=== PATIENT | female | born 1945 | race Caucasian/White ===

== ENCOUNTER 2016-10-31 16:51 | Emergency (ER) | payer MEDICARE, OTHER ==
--- NOTE | 2016-10-31 16:57 | EDM.PDOC ---
ED HPI GENERAL MEDICAL PROBLEM - General Chief Complaint: Respiratory Problem Stated Complaint: Shortness of Breath Time Seen by Provider: 10/31/16 16:54 Source of Information: Reports: Patient, Family, RN, RN Notes Reviewed History Limitations: Reports: No Limitations - History of Present Illness INITIAL COMMENTS - FREE TEXT/NARRATIVE: Patient presents to the emergency room at [facility] complaining of upper airway tightness, shortness of breath, wheezing. The patient states that she had a cortisone injection 3 days ago for back pain. The patient states that her breathing since the cortisone injection has progressively gotten worse. The patient states today has been the worst, when the airway tightness started. According to the , he states the patient seems to gasp for air. The patient has had a cortisone injection last May for her low back pain. The patient states she has had an on/off cough that just started with the shortness of breath. Onset: Today Duration: Constant - Related Data Allergies Allergy/AdvReac Type Severity Reaction Status Date / Time aspirin [From Aggrenox] Allergy Nausea Verified 10/27/16 12:43 dipyridamole [From Aggrenox] Allergy Nausea Verified 10/27/16 12:43 Home Meds: Home Meds Albuterol [Proventil HFA] 2 puff PO Q4H PRN 06/08/16 [History] Aspirin 1 tab PO DAILY 06/08/16 [History] Budesonide/Formoterol Fumarate [Symbicort 160-4.5 Mcg Inhaler] 2 puff PO DAILY 06/08/16 [History] Ibuprofen [Advil] 200 - 600 mg PO QID PRN 06/08/16 [History] Lactose-Reduced Food [Ensure] 1 dose PO DAILY 06/08/16 [History] Metoprolol Succinate [Toprol XL] 50 mg PO DAILY 06/08/16 [History] Pregabalin [Lyrica] 25 mg PO BID 06/08/16 [History] Propylene Glycol/Peg 400 [Systane 0.3-0.4% Eye Drops] 1 drop EYEBOTH ASDIRECTED 06/08/16 [History] atorvaSTATin [Lipitor] 20 mg PO DAILY 06/08/16 [History] traMADol [Ultram] 25 mg PO Q4H PRN 06/08/16 [History] ED ROS GENERAL - Review of Systems Review Of Systems: See Below Constitutional: Denies: Fever, Chills, Weakness HEENT: Reports: No Symptoms Respiratory: Reports: Shortness of Breath, Cough Cardiovascular: Reports: Dyspnea on Exertion. Denies: Chest Pain, Palpitations Skin: Reports: No Symptoms Neurological: Reports: No Symptoms. Denies: Headache, Numbness, Paresthesia, Tingling ED EXAM, GENERAL - Physical Exam Exam: See Below Exam Limited By: No Limitations General Appearance: Alert, No Apparent Distress, Thin, Cachetic Throat/Mouth: Normal Inspection, Normal Oropharynx, No Airway Compromise Respiratory/Chest: Decreased Breath Sounds, Stridor, Retractions Cardiovascular: Regular Rate, Rhythm Neurological: Alert, Oriented Skin Exam: Warm, Dry, Intact, Normal Color, No Rash Course - Orders/Labs/Meds Orders: Active Orders 24 hr Category Date Time Status RT Aerosol Therapy [RC] ASDIRECTED Care 10/31/16 17:01 Active Chest 2V [CR] Stat Exams 10/31/16 17:10 Ordered Sodium Chloride 0.9% [Saline Flush] Med 10/31/16 16:58 Active 10 ml FLUSH ASDIRECTED PRN Peripheral IV Insertion Adult [OM.PC] Routine Oth 10/31/16 16:58 Ordered Medication Orders Sodium Chloride (Saline Flush) 10 ml FLUSH ASDIRECTED PRN PRN Reason: Keep Vein Open Meds: Medications Generic Name Dose Route Start Last Admin Trade Name Freq PRN Reason Stop Dose Admin Sodium Chloride 10 ml 10/31/16 16:58 Saline Flush FLUSH ASDIRECTED PRN Keep Vein Open Discontinued Medications Generic Name Dose Route Start Last Admin Trade Name Freq PRN Reason Stop Dose Admin Albuterol/Ipratropium 3 ml 10/31/16 17:01 10/31/16 17:10 Duoneb 3.0-0.5 Mg/3 Ml NEB 10/31/16 17:02 3 ml ONETIME ONE Administration Famotidine 20 mg 10/31/16 16:58 10/31/16 17:07 Pepcid IVPUSH 10/31/16 16:59 20 mg ONETIME ONE Administration Methylprednisolone Sodium Succinate 125 mg 10/31/16 16:58 10/31/16 17:09 Solu-Medrol IVPUSH 10/31/16 16:59 125 mg ONETIME ONE Administration - Re-Assessments/Exams Free Text/Narrative Re-Assessment/Exam: 10/31/16 18:05 Discussed breathing with patient. She states it feels back to her normal pattern. She no longer feels SOB. Discussed xray findings. All questions answered. Departure - Departure Time of Disposition: 18:06 Disposition: Home, Self-Care 01 Condition: good Clinical Impression: Chronic stridor - Discharge Information Instructions: Shortness of Breath, [id number] Referrals: Vikki Cornejo, [Primary Care Provider] - Forms: ED Department Discharge Additional Instructions: 1. Stay well hydrated and rest 2. Use inhalers at home if your feels your shortness of breath getting worse 3. Continue all other medications the same 4. Eat some food, this will help 5. See your Primary as symptoms warrant - Problem List Review Problem List Initiated/Reviewed/Updated: Yes - My Orders Last 24 Hours: My Active Orders 10/31/16 16:58 Sodium Chloride 0.9% [Saline Flush] 10 ml FLUSH ASDIRECTED PRN Peripheral IV Insertion Adult [OM.PC] Routine 10/31/16 17:01 RT Aerosol Therapy [RC] ASDIRECTED 10/31/16 17:10 Chest 2V [CR] Stat - Assessment/Plan Last 24 Hours: My Active Orders 10/31/16 16:58 Sodium Chloride 0.9% [Saline Flush] 10 ml FLUSH ASDIRECTED PRN Peripheral IV Insertion Adult [OM.PC] Routine 10/31/16 17:01 RT Aerosol Therapy [RC] ASDIRECTED 10/31/16 17:10 Chest 2V [CR] Stat
[2016-10-31] MEDS ORDERED: Famotidine 20 MG/2 ML SDV IVPUSH ONE (16:58)
[2016-10-31] MEDS ORDERED: Sodium Chloride 0.9% 10 ML Syringe FLUSH PRN (16:58)
[2016-10-31] MEDS ORDERED: methylPREDNISolone Sodium Succinate 125 MG/2 ML SDV IVPUSH ONE (16:58)
[2016-10-31] MEDS ORDERED: Albuterol/Ipratropium 3.0-0.5 MG/3 ML Neb Soln NEB ONE (17:01)
[2016-10-31 19:41] VITALS: BP 136/78
== END 2016-10-31 18:15 | disposition home or self-care (01) ==
LOC: VM.ED 16:51
DX: R06.1 Stridor (principal); M54.9 Dorsalgia, unspecified; Z79.82 Long term (current) use of aspirin; Z79.899 Other long term (current) drug therapy; Z88.8 Allergy status to other drugs, medicaments and biological substances
CPT/HCPCS: 71020; 94640; 96374; 96375; 99284; 99285; J2930; S0028

== ENCOUNTER 2017-06-25 09:02 | Inpatient (IN) | payer MEDICARE, OTHER ==
[2017-06-25] MEDS ORDERED: Dextran 70/Hypromellose/PF Ophth Soln 0.9 ML UD EYEBOTH PRN (13:45)
[2017-06-25] MEDS ORDERED: Take Home: Albuterol 6.7 GM Inhaler, 1 Inhaler Pack INH PRN (13:45)
[2017-06-25] MEDS ORDERED: Albuterol 0.083% 2.5 MG/3 ML Neb Soln NEB PRN (14:06)
[2017-06-25] MEDS ORDERED: Sodium Chloride 0.9% 10 ML Syringe FLUSH PRN (16:57)
[2017-06-25] MEDS ORDERED: Furosemide 20 MG Tab GTUBE PRN (16:59)
[2017-06-25] MEDS ORDERED: Acetaminophen 325 MG Tab PO PRN (17:25)
[2017-06-25] MEDS ORDERED: Atropine 1% Ophth Soln 5 ML BOTTLE SL PRN (17:31)
[2017-06-25] MEDS ORDERED: Lactated Ringers 1,000 ML IV SCH ×2 (18:30→23:45)
--- NOTE | 2017-06-25 19:30 | PCM.SN ---
- Free Text/Narrative Note: Called by nursing staff when patient BP 60/30's. She had gotten a bolus through her G-tube and they were working on getting the IV placed. I came in to assess the patient who was awake and answering questions appropriately. While the IV was being placed, another 100 cc bolus given through her g-tube. ER nurse able to get IV in the foot. LR then started at 100 cc/hr in order not to cause issues with the IV. Instructed nursing staff to call with BP in 30 minutes. On recheck, BP much better at 87/40's. Will complete bolus of 100 cc only and recheck BP 30 minutes after this is stopped.
--- NOTE | 2017-06-25 20:09 | PCM.SN ---
- Free Text/Narrative Note: Called by nursing that patient's BP is back down to 60s/30s; she remains alert and answering questions appropriately. Will give another 100 cc bolus over an hour. Low blood pressures presumed to be secondary to less intake today with the transition to [place]. Will hold off on further evaluation as long as she continues to respond to these gentle boluses. If she does not, then will do CBC, troponin, BMP, lactate, and CRP for further evaluation.
[2017-06-25] MEDS: Metoprolol Tartrate 50 MG Tab GTUBE SCH (20:59)
[2017-06-25] MEDS: Pregabalin 50 MG Cap GTUBE SCH (20:59)
--- NOTE | 2017-06-25 22:26 | HP ---
CHIEF COMPLAINT/HISTORY OF PRESENT ILLNESS: Weakness and deconditioning following a prolonged acute stay at [facility] from 06/17 through 06/25 for aspiration pneumonia, treated with antibiotics, completed her course. Atrial flutter. Asymmetric septal hypertrophy with a dynamic left ventricular outflow obstruction. EF 80%. Chronic bilateral vocal cord paralysis and weight loss really gradually over the past 2 years, but her weight was only 2 pounds greater 6 months ago when she declined PEG tube placements. [id number] CT due to demand ischemia. No significant coronary artery workup took place. The patient had previous chronic pain, had multiple vertebral compression fractures. She was taking tramadol 1 to 2 times a day for pain. She was found to be unresponsive or less responsive. She did respond to Narcan, therefore, was taken off her tramadol in [place]. She had also been on Lyrica. She had received a benzodiazepine in the emergency room in [place]. She had also received some Lovenox due to concern for CT. She was found to be in SVT and did receive Cardizem and Lasix. She did receive some Lasix last night. She states she went to the bathroom quite a bit. She states her breathing is the same. She is not having trouble with cough. She denies any pain currently. She was switched to oral metoprolol. She did have some rapid heart rates during her stay, but they have been more controlled recently. Otherwise, she did have some GI bleeding after her PEG tube placement on 06/19, which the melena was on 06/20. GI was consulted, but did not do any scopes. Due to her condition, they felt it might be high risk and the bleeding eventually stopped. She was then placed on a PPI and interestingly was given NSAIDs for pain. She had an MRI of the brain, which was negative. The cause of her vocal cord paralysis is unknown and really she has had this since the . Last year, she was seen by ENT who recommended tracheostomy, but the patient declined. She also declined tracheostomy at this time as her father had one for cancer, but she did express interest along with her family of having it if she gains more strength back. She even had a palliative care consult during her admission, but she felt with her family that she was not ready for palliative care and wanted to continue with aggressive treatments. Otherwise, when she came to swing bed, she was a little bit tired, but she was alert. She was able to answer questions appropriately. Her breathing and wheezing with throat noise were similar to what I have experienced when I have been around her in the past. She was on 2 L of oxygen and has been on this amount down in [place]. Her weight was 36.2 kg when she arrived. She had no leg swelling. PAST MEDICAL HISTORY: Includes previous hysterectomy for pelvic prolapse with bilateral salpingo-oophorectomy and anterior colporrhaphy in September 2012. Chronic dysphonia, probably due to the vocal cord paralysis, and really she actually worked with speech therapy back in the . Diastolic dysfunction on echo in 2012. Hyperlipidemia, mild pulmonary hypertension, peripheral vascular disease with a right CEA, but never smoked, but did have a previous TIA. Glaucoma. Reactive airway disease that is not asthma, worse in the humidity in [place]. Osteoporosis with previous fracture and chronic thoracic back pain. Essential hypertension, stopped Toprol in May of 2017. PAST SURGICAL HISTORY: Surgically as listed above. Otherwise, the patient has had tubal ligation, cataract surgery, breast biopsies. SOCIAL HISTORY: Socially, the patient is . 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 She lives at home with her . They have 2 children. She is nonsmoker, nondrinker. FAMILY HISTORY: Her mother is , had a heart attack, had osteoporosis and kyphosis later in life. Father had alcohol abuse and laryngeal cancer. Sister is alive and healthy. REVIEW OF SYSTEMS: General: She has had some weight loss up and down, it has been a chronic thing. I do not think it is fair to say there has been an excessive weight loss, but she is down 8 pounds since March. HEENT: No sore throat, but she has had some secretions. She has had no fever or chills. Cardiac: No chest pain. No palpitations. Respiratory: She has had a little bit of a cough, no worse. states she was always coughing in the mornings at home. Her breathing is the same. There has been some wheezing, but no changes. Abdomen: No nausea, vomiting, or abdominal pain but did have some loose stools presumably due to the tube feeds. She was reported to have some C. diff testing in [place] that has been negative, although I did not find that done since 06/20 at which point it was negative. Neurologic: She has had no new weakness. No focal weakness. No numbness. Musculoskeletal: Back pain has not been any worse. She, otherwise, has no new aches or pains. Otherwise, all systems reviewed and found to be negative unless, otherwise, stated. PHYSICAL EXAMINATION: Vital Signs: Include weight 36.2 kg, temp 97, pulse 93, blood pressure 100/70, respiratory rate 30, O2 95% on 2 L. General: She is in no acute distress. She appears quite tired. She is resting comfortably in bed. Heart: Regular rate and rhythm with murmur noted. Lungs: Lung sounds are slightly decreased over the right base, but clear without crackles. There is no peripheral wheezing. Her wheezing appears more central or in the trachea area. Mental Status: She is alert and orientated x3. She answers questions, but her voice is soft. It does take considerable effort for her to talk. Abdomen: Has a G-tube in place. Positive bowel sounds. Soft and nontender. Extremities: Warm and dry. No edema. Overall, she is mildly pale. Mental Status: She is alert. She is orientated x3. She recognizes me. LABORATORY DATA: Laboratory work from yesterday did show a troponin still at 0.069, was trending down. Her glucoses have been quite high up to 232 and 208 today. Otherwise, her kidney function yesterday, creatinine was 0.6, BUN 25. Potassium 4.1, sodium 146, phosphorus 1.7, albumin 2.6, calcium 8. Last blood count was white count 11.6 on 06/21, hemoglobin 12.5, platelets 275. ASSESSMENT: 1. Recent aspiration pneumonia, completed antibiotics. This is due to vocal cord paralysis. The patient is at significant risk for this to reoccur. This was discussed extensively with her and her family. She would like to get stronger and consider tracheostomy placement. 2. Bilateral vocal cord paralysis. The patient has had for over 25 years. She has seen specialists for this in the past. Brain MRI was okay. 3. Atrial flutter with previous rapid ventricular response. This is new onset. She is now having a more controlled response. We will continue metoprolol but hold for low blood pressures. 4. Dynamic left ventricular outflow obstruction. The patient at this point actually appears slightly dry. I am going to change her Lasix to p.r.n. and give it to her if needed for fluid retention. We will get support stockings in place. 5. Bbq-CD-plnfblghf myocardial infarction in the setting of demand ischemia. She is on aspirin. No signs of gastrointestinal bleeding. 6. Chronic pain related to compression fractures in the back. She will be on Tylenol. I am going to hold NSAIDs. We will also continue her Lyrica. 7. Chronic hypoxic respiratory failure since her admission for pneumonia. We will continue oxygen and wean off as able. 8. Previous peripheral vascular disease. 9. Severe malnutrition. She is on tube feeds. She is currently at 50 mL/h with q.i.d. 100 mL of fluid. We will follow up with a sodium on Wednesday. 10.Deep vein thrombosis prophylaxis. I will put her on support stockings. She can be up and working with PT. PLAN: PT, OT, and Speech consults. Labs on Wednesday. Close monitoring of blood pressure. Atropine ordered for secretions. Lasix to p.r.n. Discussed plans of care is to try to get stronger. I instructed that overall prognosis is very guarded. Family would like to try everything, so if her condition worsens, recommend labs, x-rays, acute treatments, and transfer back to [place] as indicated. I updated Dr. Alex who will be covering for the weekend. MKA: 06/25/2017 17:36:49 MODL: 06/25/2017 22:20:40 /[id number]
--- NOTE | 2017-06-25 22:38 | PCM.SN ---
- Free Text/Narrative Note: Although patient's blood pressure continues to respond nicely to fluid boluses, it also continues to drop again once boluses are stopped. She remains alert and answering questions appropriately per nursing report. Will increase fluid rate to 100 cc/hr again. Will also check stat labs. Check BP again in 30 minutes.
--- NOTE | 2017-06-26 00:36 | PCM.SN ---
- Free Text/Narrative Note: Had restarted fluids at 50 cc/hr. Despite this, patient's BP dropped again to the 60's/30's. I came in to reassess the patient. She is lightheaded but otherwise answering questions appropriately. She denies any fever, chills, cough , abdominal pain, vomiting, or diarrhea. No UTI symptoms. Fluids increased back to 100 cc/hr. Stat labs also obtained. BP did improve with higher fluid rates. WBC quite high; CRP up slightly; lactic acid is normal. CXR obtained and shows evidence of bibasilar pneumonia vs. atelectasis. Based on her WBC, favor pneumonia. Family came in to see the patient. Held a discussion about transfer to [place] in light of limited options for fluid resuscitation if we lose current IV access or BP does not continue to respond to slow fluid infusion rates. Patient does not want to transfer to [place]. Then held a conversation about doing antibiotics and continuing IV fluids and she desires to do so. Last, again reviewed code status and she would like to remain full code. Family present and in agreement with this plan. Will start ceftriaxone and metronidazole as she responded well to this in [place]. Will have to give ceftriaxone IM due to interaction with LR in same line. Patient aware and accepting of this. Flagyl will be given PO. Hopefully tomorrow she can transition to orals. BP has come up nicely with the fluids. Will decrease fluid rate to 50 cc/hr and continue that overnight. Routine vital signs. Apparently there was some mix-up and she was placed on acute inpatient status earlier today. This is appropriate given her current status and we will leave her as inpatient for now. Patient and family aware that her condition could change and that we will have ongoing discussions on level of intervention desired as the days go on.
[2017-06-26] MEDS ORDERED: cefTRIAXone 1 GM Vial IM ONE (01:16)
[2017-06-26] MEDS ORDERED: metroNIDAZOLE 500 MG Tab GTUBE SCH (01:30)
[2017-06-26] MEDS: Metoprolol Tartrate 50 MG Tab GTUBE SCH ×4 (06:35→21:07)
[2017-06-26] MEDS ORDERED: BUDESONIDE PO SCH (08:00)
[2017-06-26] MEDS ORDERED: FORMOTEROL PO SCH (08:00)
[2017-06-26] MEDS ORDERED: Aspirin 81 MG Tab.Chew GTUBE SCH (08:00)
[2017-06-26] MEDS ORDERED: Calcium Carbonate 1,250 MG/5 ML Susp 5 ML UD Cup GTUBE SCH (08:00)
[2017-06-26] MEDS ORDERED: Calcitonin (Salmon) Nasal Spray 3.7 ML Bottle NAS SCH (08:00)
[2017-06-26] MEDS ORDERED: Furosemide 20 MG Tab GTUBE SCH (08:00)
[2017-06-26] MEDS ORDERED: atorvaSTATin 10 MG Tab GTUBE SCH (08:00)
[2017-06-26] MEDS ORDERED: Furosemide 20 MG/2 ML VIAL IV ONE (09:08)
--- NOTE | 2017-06-26 09:35 | PCM.PN ---
- General Info Date of Service: 06/26/17 Subjective Update: Patient seen this morning. Does not answer questions this morning. Family present at bedside. Patient has had some difficulty with shortness of breath this am. See summary of this morning's events below under a/p. - Patient Data Vitals - Most Recent: Last Vital Signs Temp 37.2 C 06/26/17 07:49 Pulse 95 06/26/17 07:49 Resp 34 H 06/26/17 07:49 BP 120/52 L 06/26/17 07:49 Pulse Ox 96 06/26/17 07:49 Weight - Most Recent: 36.287 kg I&O - Last 24 Hours: Intake & Output 06/25/17 06/26/17 06/26/17 22:59 06:59 14:59 Intake Total 200 100 Output Total 120 Balance 80 100 Lab Results Last 24 Hours: Laboratory Results - last 24 hr 06/25/17 06/25/17 06/25/17 Range/Units 23:20 23:20 23:20 WBC 18.3 H (4.0-10.0) x10^3/uL RBC 3.65 L (4.00-5.50) x10^6/uL Hgb 11.7 L D (12.0-16.0) g/dL Hct 36.9 (33.0-47.0) % MCV 101.1 H D (78.0-93.0) fL MCH 32.1 H (26.0-32.0) pg MCHC 31.7 L (32.0-36.0) g/dL RDW Coeff of Yony 13.3 (10.0-15.0) % Plt Count 287 (130-400) x10^3/uL Add Manual Diff Yes Neutrophils % (Manual) 85 H (50-80) % Band Neutrophils % 7 H (0-6) % Lymphocytes % (Manual) 2 L (25-50) % Atypical Lymphs % 5 H (0) % Monocytes % (Manual) 1 L (2-11) % Platelet Estimate Adequate Polychromasia 1+ slight H Poikilocytosis 1+ slight H Anisocytosis 1+ slight H Sodium 143 (136-145) mmol/L Potassium 3.4 L (3.5-5.1) mmol/L Chloride 99 (98-107) mmol/L Carbon Dioxide 40 H D (21-32) mmol/L BUN 39 H (7-18) mg/dL Creatinine 0.9 (0.55-1.02) mg/dL Est Cr Clr Drug Dosing 31.89 mL/min Estimated GFR (MDRD) > 60 Glucose 198 H (74-106) mg/dL POC Glucose (74-106) mg/dL Lactic Acid 1.8 (0.4-2.0) mmol/L Calcium 7.9 L (8.5-10.1) mg/dL Troponin I 0.087 H* (<=0.056) ng/mL C-Reactive Protein 3.4 H (<=0.9) mg/dL 06/26/17 Range/Units 06:19 WBC (4.0-10.0) x10^3/uL RBC (4.00-5.50) x10^6/uL Hgb (12.0-16.0) g/dL Hct (33.0-47.0) % MCV (78.0-93.0) fL MCH (26.0-32.0) pg MCHC (32.0-36.0) g/dL RDW Coeff of Yony (10.0-15.0) % Plt Count (130-400) x10^3/uL Add Manual Diff Neutrophils % (Manual) (50-80) % Band Neutrophils % (0-6) % Lymphocytes % (Manual) (25-50) % Atypical Lymphs % (0) % Monocytes % (Manual) (2-11) % Platelet Estimate Polychromasia Poikilocytosis Anisocytosis Sodium (136-145) mmol/L Potassium (3.5-5.1) mmol/L Chloride (98-107) mmol/L Carbon Dioxide (21-32) mmol/L BUN (7-18) mg/dL Creatinine (0.55-1.02) mg/dL Est Cr Clr Drug Dosing mL/min Estimated GFR (MDRD) Glucose (74-106) mg/dL POC Glucose 205 H (74-106) mg/dL Lactic Acid (0.4-2.0) mmol/L Calcium (8.5-10.1) mg/dL Troponin I (<=0.056) ng/mL C-Reactive Protein (<=0.9) mg/dL [place] Results Last 24 Hours: Microbiology 06/25/17 13:05 MRSA Surveillance Culture - Final Nares, Left NO MRSA ISOLATED Med Orders - Current: Current Medications Acetaminophen (Tylenol) 650 mg PO Q6H PRN PRN Reason: Pain Last Admin: 06/26/17 06:35 Dose: 650 mg Albuterol (Proventil Neb Soln) 2.5 mg NEB Q4HRRT PRN PRN Reason: Wheezing Artificial Tears (Tears Naturale Free) 1 each EYEBOTH ASDIRECTED PRN PRN Reason: DRY EYES Atropine Sulfate (Atropine 1% Ophth Soln) 0 ml SL Q2H PRN PRN Reason: Other Calcitonin [place] (Miacalcin Nasal [place]) 0 ml JUAN DAILY [facility] Metoprolol Tartrate (Lopressor) 50 mg GTUBE TID [facility] Last Admin: 06/26/17 07:52 Dose: Not Given Morphine Sulfate (Morphine 20 Mg/Ml Soln) 5 mg GTUBE Q30M PRN PRN Reason: Shortness of breath/dyspnea Budesonide/Formoterol (Own Supply) 0 puff PO DAILY [facility] Pregabalin (Lyrica) 50 mg GTUBE BID [facility] Last Admin: 06/25/17 20:59 Dose: 50 mg Senna/Docusate Sodium (Senna Plus) 1 tab GTUBE DAILY PRN PRN Reason: Constipation Sodium Chloride (Saline Flush) 10 ml FLUSH ASDIRECTED PRN PRN Reason: Keep Vein Open Discontinued Medications Aspirin (Aspirin) 81 mg GTUBE DAILY [facility] Atorvastatin Calcium (Lipitor) 20 mg GTUBE DAILY [facility] Calcium Carbonate/Glycine (Calcium Carbonate 250 Mg/Ml Susp) 1,250 mg GTUBE DAILY [facility] Ceftriaxone Sodium (Rocephin) 1 gm IM ONETIME ONE Stop: 06/26/17 01:17 Last Admin: 06/26/17 02:21 Dose: 1 gm Furosemide (Lasix) 20 mg GTUBE DAILY [facility] Furosemide (Lasix) 20 mg GTUBE DAILY PRN PRN Reason: Edema Furosemide (Lasix) 5 mg IV ONETIME ONE Stop: 06/26/17 09:09 Lactated Ringer's (Ringers, Lactated) 1,000 mls @ 100 mls/hr IV ASDIRECTED BOWEN Stop: 06/25/17 19:30 Lactated Ringer's (Ringers, Lactated) 1,000 mls @ 100 mls/hr IV ASDIRECTED [facility] Last Infusion: 06/26/17 01:23 Dose: 50 mls/hr Metronidazole (Flagyl) 500 mg GTUBE Q8H [facility] Last Admin: 06/26/17 02:22 Dose: 500 mg - Exam General: Moderate Distress, Lethargic Lungs: Crackles Cardiovascular: Regular Rate, Regular Rhythm, No Murmurs GI/Abdominal Exam: Normal Bowel Sounds, Soft, Non-Tender, No Distention Extremities: Normal Inspection, No Pedal Edema Skin: Warm, Dry, Intact - Problem List & Annotations (1) Palliative care patient SNOMED Code(s): 316808591 Code(s): Z51.5 - ENCOUNTER FOR PALLIATIVE CARE Status: Acute Current Visit: Yes Annotation/Comment:: Patient seen many times last night for hypotension. BP's have improved with IV fluids. However, this am, she is now having more difficulty breathing. Unclear whether this is fluid overload or presumed aspiration pneumonia given patient inability to participate with lung exam. She is much more sleepy this am and unable to answer questions appropriately. Her , son, daughter, and sister are present at the bedside. Again reviewed her declining condition. She is in respiratory distress. Her saturations are staying up with nasal cannula but he respiratory status otherwise is distressed. Reviewed that if we do not intervene for this, she will continue to decline and likely pass away in the next few hours. Discussed that possible interventions would include IV diuretics and antibiotics , non-invasive positive pressure ventilation, and intubation. Discussed also that we could again consider transition to a more comfort care approach and change her management to that regard. After this discussion, her and family have opted to transition to comfort cares. They are ok with her getting IV lasix to see if this helps at all with her respiratory status. Other than that, no further interventions. Her medications will be simplified. Morphine will be added PRN pain or shortness of breath. Will stop vital sign checks and allow her family to spend time with her. All questions answered. My condolences were offered. - Problem List Review Problem List Initiated/Reviewed/Updated: Yes - My Orders Last 24 Hours: My Active Orders 06/25/17 18:25 Communication Order [RC] STAT 06/25/17 18:48 Communication Order [RC] PER UNIT ROUTINE 06/26/17 00:06 Chest 1V Frontal [CR] Stat 06/26/17 01:07 Admission Status [Patient Status] [ADT] Routine 06/26/17 09:22 Resuscitation Status Routine 06/26/17 09:25 Morphine [Morphine 20 MG/ML Soln] 5 mg GTUBE Q30M PRN 06/26/17 09:26 Oxygen Therapy [RC] PRN - Assessment Assessment:: See above. - Plan Plan:: See above.
[2017-06-26] MEDS: Pregabalin 50 MG Cap GTUBE SCH ×2 (10:03→21:07)
--- NOTE | 2017-06-26 16:23 | PCM.SN ---
- Free Text/Narrative Note: Tube feed bottle ended. Nursing wondering if they should continue. Spoke with family and recommend at least a temporary hold on the tube feeds given concern for aspiration at this time. No other changes. Patient is comfortable.
[2017-06-26] MEDS: Morphine Oral Concentrate 20 MG/ML 30 ML Bottle GTUBE PRN ×4 (18:00→22:37)
[2017-06-26] MEDS: LORazepam 0.5 MG Tab GTUBE PRN ×2 (21:06→22:36)
[2017-06-26 21:10] VITALS: BP 130/68
[2017-06-27] MEDS: Morphine Oral Concentrate 20 MG/ML 30 ML Bottle GTUBE PRN (03:14)
--- NOTE | 2017-07-07 08:27 | PCM.DCSUM1 ---
Discharge Summary - Hospital Course Brief History: Patient transitioned to acute cares due to need for increased evaluation and management of shortness of breath. - Discharge Data Discharge Date: 06/27/17 Discharge Disposition: 20 Condition: - Discharge Diagnosis/Problem(s) (1) Palliative care patient SNOMED Code(s): 862494482 ICD Code: Z51.5 - ENCOUNTER FOR PALLIATIVE CARE Status: Acute Problem Details: Patient seen many times last night for hypotension. BP's have improved with IV fluids. However, this am, she is now having more difficulty breathing. Unclear whether this is fluid overload or presumed aspiration pneumonia given patient inability to participate with lung exam. She is much more sleepy this am and unable to answer questions appropriately. Her , son, daughter, and sister are present at the bedside. Again reviewed her declining condition. She is in respiratory distress. Her saturations are staying up with nasal cannula but he respiratory status otherwise is distressed. Reviewed that if we do not intervene for this, she will continue to decline and likely pass away in the next few hours. Discussed that possible interventions would include IV diuretics and antibiotics, non-invasive positive pressure ventilation, and intubation. Discussed also that we could again consider transition to a more comfort care approach and change her management to that regard. After this discussion, her and family have opted to transition to comfort cares. They are ok with her getting IV lasix to see if this helps at all with her respiratory status. Other than that, no further interventions. Her medications will be simplified. Morphine will be added PRN pain or shortness of breath. Will stop vital sign checks and allow her family to spend time with her. All questions answered. My condolences were offered. - Patient Summary/Data Consults: Consultations 06/25/17 11:33 PT Evaluation and Treatment [CONS] Routine 06/25/17 11:34 OT Evaluation and Treatment [CONS] Routine 06/25/17 11:37 Consult to Speech Language Pathology [HOSPITAL EDUCATION COORDINATOR Evaluation and Treatment] [CONS] Routine Hospital Course: Patient's clinical status progressively worsened and she was transitioned to comfort cares. Her symptoms were controlled and she passed comfortably in the presence of her family. - Discharge Plan Home Medications: Home Meds Albuterol [Proventil HFA] 2 puff PO Q4H PRN 06/08/16 [History] Aspirin 81 mg GTUBE DAILY 06/08/16 [History] Budesonide/Formoterol Fumarate [Symbicort 160-4.5 Mcg Inhaler] 2 puff PO DAILY 06/08/16 [History] Ibuprofen [Advil] 200 - 600 mg GTUBE QID PRN 06/08/16 [History] Propylene Glycol/Peg 400 [Systane 0.3-0.4% Eye Drops] 1 drop EYEBOTH ASDIRECTED 06/08/16 [History] atorvaSTATin [Lipitor] 20 mg GTUBE DAILY 06/08/16 [History] Calcitonin ([place]) [Miacalcin Nasal [place]] 1 spray JUAN DAILY [facility] alternate nostril 06/16/17 [History] Calcium Carb & Citrate/Vit D3 [Calcium + D3 ER Tablet] 500 mg GTUBE DAILY [History] Sennosides/Docusate Sodium [Senokot-S Tablet] 1 tab GTUBE DAILY PRN 06/16/17 [ History] Furosemide 20 mg GTUBE DAILY 06/25/17 [History] Metoprolol Tartrate 50 mg GTUBE TID 06/25/17 [History] Pregabalin [Lyrica] 50 mg GTUBE BID 06/25/17 [History] - Patient Data Vitals - Most Recent: Last Vital Signs Temp 36.7 C 06/26/17 10:00 Pulse 105 H 06/26/17 21:07 Resp 24 H 06/26/17 10:00 BP 130/68 06/26/17 21:07 Pulse Ox 95 06/26/17 20:00 Weight - Most Recent: 36.287 kg Med Orders - Current: Current Medications Discontinued Medications Acetaminophen (Tylenol) 650 mg PO Q6H PRN PRN Reason: Pain Last Admin: 06/26/17 06:35 Dose: 650 mg Albuterol (Proventil Neb Soln) 2.5 mg NEB Q4HRRT PRN PRN Reason: Wheezing Last Admin: 06/26/17 07:40 Dose: 2.5 mg Artificial Tears (Tears Naturale Free) 1 each EYEBOTH ASDIRECTED PRN PRN Reason: DRY EYES Aspirin (Aspirin) 81 mg GTUBE DAILY [facility] Last Admin: 06/26/17 11:09 Dose: Not Given Atorvastatin Calcium (Lipitor) 20 mg GTUBE DAILY [facility] Last Admin: 06/26/17 11:09 Dose: Not Given Atropine Sulfate (Atropine 1% Ophth Soln) 0 ml SL Q2H PRN PRN Reason: Other Calcitonin [place] (Miacalcin Nasal [place]) 0 ml JUAN DAILY [facility] Last Admin: 06/26/17 11:09 Dose: Not Given Calcium Carbonate/Glycine (Calcium Carbonate 250 Mg/Ml Susp) 1,250 mg GTUBE DAILY [facility] Last Admin: 06/26/17 11:09 Dose: Not Given Ceftriaxone Sodium (Rocephin) 1 gm IM ONETIME ONE Stop: 06/26/17 01:17 Last Admin: 06/26/17 02:21 Dose: 1 gm Furosemide (Lasix) 20 mg GTUBE DAILY [facility] Furosemide (Lasix) 20 mg GTUBE DAILY PRN PRN Reason: Edema Furosemide (Lasix) 5 mg IV ONETIME ONE Stop: 06/26/17 09:09 Last Admin: 06/26/17 10:03 Dose: 5 mg Lactated Ringer's (Ringers, Lactated) 1,000 mls @ 100 mls/hr IV ASDIRECTED [facility] Stop: 06/25/17 19:30 Lactated Ringer's (Ringers, Lactated) 1,000 mls @ 100 mls/hr IV ASDIRECTED [facility] Last Infusion: 06/26/17 01:23 Dose: 50 mls/hr Lorazepam (Ativan) 0.5 mg GTUBE Q1H PRN PRN Reason: Restlessness or Anxiety Last Admin: 06/26/17 22:36 Dose: 0.5 mg Metoprolol Tartrate (Lopressor) 50 mg GTUBE TID [facility] Last Admin: 06/26/17 21:07 Dose: 50 mg Metronidazole (Flagyl) 500 mg GTUBE Q8H [facility] Last Admin: 06/26/17 02:22 Dose: 500 mg Morphine Sulfate (Morphine 20 Mg/Ml Soln) 5 mg GTUBE Q30M PRN PRN Reason: Shortness of breath/dyspnea Last Admin: 06/27/17 03:14 Dose: 5 mg Budesonide/Formoterol (Own Supply) 0 puff PO DAILY [facility] Last Admin: 06/26/17 13:32 Dose: Not Given Pregabalin (Lyrica) 50 mg GTUBE BID [facility] Last Admin: 06/26/17 21:07 Dose: 50 mg Senna/Docusate Sodium (Senna Plus) 1 tab GTUBE DAILY PRN PRN Reason: Constipation Sodium Chloride (Saline Flush) 10 ml FLUSH ASDIRECTED PRN PRN Reason: Keep Vein Open *Q Meaningful Use (DIS) - VTE *Q VTE Criteria *Q: - Stroke *Q Stroke Criteria *Q: - AMI *Q AMI Criteria *Q:
== END 2017-06-27 06:47 | disposition expired | DRG 193 ==
LOC: VM.MS 12:02 → UNDOADMIN 12:02 → VM.MS 06-26 01:07 → UNDODISIN 06-27 06:47
PROVIDERS: ADMIT Family Medicine; ATTEND Family Medicine
DX: J18.9 Pneumonia, unspecified organism (principal); I21.A1 Myocardial infarction type 2; E43 Unspecified severe protein-calorie malnutrition; Z51.5 Encounter for palliative care; I48.92 Unspecified atrial flutter; M48.50XA Collapsed vertebra, not elsewhere classified, site unspecified, initial encounter for fracture; J96.11 Chronic respiratory failure with hypoxia; Z93.1 Gastrostomy status; E78.5 Hyperlipidemia, unspecified; I73.9 Peripheral vascular disease, unspecified; I27.20 Pulmonary hypertension, unspecified; M81.0 Age-related osteoporosis without current pathological fracture; I10 Essential (primary) hypertension; J38.02 Paralysis of vocal cords and larynx, bilateral; G89.29 Other chronic pain
CPT/HCPCS: 36415; 71045; 80048; 82962; 83605; 84484; 85025; 86140; 92526-GN; 92610-GN; A9270-GY; J0696; J1940; J7120; J7620-GY

== ENCOUNTER 2017-06-25 12:02 | Inpatient (IN) | payer MEDICARE, OTHER ==
[2017-06-25] MEDS ORDERED: Lactated Ringers 1,000 ML IV SCH ×2 (18:00→23:45)
[2017-06-25] MEDS ORDERED: Pregabalin 50 MG Cap GTUBE SCH (20:00)
[2017-06-25 23:48] LABS: CHLORIDE,CL 99 mmol/L (98-107); SODIUM,NA 143 mmol/L (136-145)
--- NOTE | 2017-07-07 08:23 | PCM.DCSUM1 ---
Discharge Summary - Hospital Course Brief History: Patient admitted on swing bed following a hospital stay in [place] , transitioned to acute due to increased shortness of breath. - Discharge Data Discharge Date: 06/26/17 Discharge Disposition: 20 Condition: Good - Patient Summary/Data Hospital Course: Patient's clinical status progressively worsened and based on conversations with she and her family was eventually transitioned to comfort cares. She passed comfortably in the presence of her family. - Discharge Plan Home Medications: Home Meds Albuterol [Proventil HFA] 2 puff PO Q4H PRN 06/08/16 [History] Aspirin 81 mg GTUBE DAILY 06/08/16 [History] Budesonide/Formoterol Fumarate [Symbicort 160-4.5 Mcg Inhaler] 2 puff PO DAILY 06/08/16 [History] Ibuprofen [Advil] 200 - 600 mg GTUBE QID PRN 06/08/16 [History] Propylene Glycol/Peg 400 [Systane 0.3-0.4% Eye Drops] 1 drop EYEBOTH ASDIRECTED 06/08/16 [History] atorvaSTATin [Lipitor] 20 mg GTUBE DAILY 06/08/16 [History] Calcitonin ([place]) [Miacalcin Nasal [place]] 1 spray JUAN DAILY [facility] alternate nostril 06/16/17 [History] Calcium Carb & Citrate/Vit D3 [Calcium + D3 ER Tablet] 500 mg GTUBE DAILY [History] Sennosides/Docusate Sodium [Senokot-S Tablet] 1 tab GTUBE DAILY PRN 06/16/17 [ History] Furosemide 20 mg GTUBE DAILY 06/25/17 [History] Metoprolol Tartrate 50 mg GTUBE TID 06/25/17 [History] Pregabalin [Lyrica] 50 mg GTUBE BID 06/25/17 [History] - Discharge Summary/Plan Comment DC Time >30 min.: No - Patient Data Med Orders - Current: Current Medications Lactated Ringer's (Ringers, Lactated) 1,000 mls @ 100 mls/hr IV ASDIRECTED BOWEN Discontinued Medications Lactated Ringer's (Ringers, Lactated) 1,000 mls @ 100 mls/hr IV ASDIRECTED BOWEN Stop: 06/27/17 23:59 Pregabalin (Lyrica) 50 mg GTUBE BID BOWEN Stop: 06/27/17 23:59 *Q Meaningful Use (DIS) - VTE *Q VTE Criteria *Q: - Stroke *Q Stroke Criteria *Q: - AMI *Q AMI Criteria *Q:
== END 2017-06-26 01:06 | disposition critical access hospital (66) | DRG 947 ==
LOC: VM.MS 12:02
PROVIDERS: ADMIT Family Medicine; ATTEND Family Medicine
DX: R53.1 Weakness (principal); Q21.3 Tetralogy of Fallot; I21.A1 Myocardial infarction type 2; E43 Unspecified severe protein-calorie malnutrition; I48.92 Unspecified atrial flutter; J96.11 Chronic respiratory failure with hypoxia; J38.02 Paralysis of vocal cords and larynx, bilateral; G89.29 Other chronic pain; M80.08XD Age-related osteoporosis with current pathological fracture, vertebra(e), subsequent encounter for fracture with routine healing; I73.9 Peripheral vascular disease, unspecified; Z51.5 Encounter for palliative care; I95.9 Hypotension, unspecified
CPT/HCPCS: 36415; 71045; 80048; 82962; 83605; 84484; 85025; 86140; 92526-GN; 92610-GN; A9270-GY; J7120